=== PATIENT | female | born 1940 | race Caucasian/White ===

== ENCOUNTER 2025-01-04 15:13 | Inpatient (IN) | payer MEDICARE, BC ==
[~2025-01-04] VITALS: Ht 162.6 cm; Wt 49.4 kg
[2025-01-04] MEDS ORDERED: ONDANSETRON HCL/PF 4 MG/2 ML VIAL ONE ×2 (15:41→16:58)
[2025-01-04 15:43] LABS: BASOPHILS # (AUTO) 0.1 K/uL (0.0-0.2); BASOPHILS % (AUTO) 0.8 % (0.0-2.0); EOSINOPHILS % (AUTO) 0.1 % (0.0-6.0); HEMATOCRIT 40 % (33-45); HEMOGLOBIN 13.5 g/dL (11.5-14.8); LYMPHOCYTES # (AUTO) 1.3 K/uL (0.8-4.8); LYMPHOCYTES % (AUTO) 14.4 % (20.0-44.0); MEAN CORPUSCULAR HEMOGLOBIN 30 PG (26.0-33.0); MEAN CORPUSCULAR HGB CONC 33 g/dl (31.0-36.0); MEAN CORPUSCULAR VOLUME 89 fL (82-100); MONOCYTES # (AUTO) 0.3 K/uL (0.1-1.30); MONOCYTES % (AUTO) 3.2 % (2.0-12.0); NEUTROPHILS # (AUTO) 7.1 K/uL (1.8-8.9); NEUTROPHILS % (AUTO) 81.5 % (43.0-81.0); PLATELET COUNT (AUTO) 226 K/uL (150-450); RED BLOOD CELL COUNT(AUTO) 4.53 MIL/uL (4.0-5.2); RED CELL DISTRIBUTION WIDTH 14.1 % (11.5-15.0); WHITE BLOOD COUNT (AUTO) 8.8 K/uL (4.3-11.0)
[2025-01-04] MEDS: IV NS 0.9% 1,000 ML BAG IV ONE (15:43)
[2025-01-04] MEDS: ONDANSETRON HCL/PF 4 MG/2 ML VIAL IVP ONE (15:43)
[2025-01-04 15:57] LABS: CALCIUM, SERUM 9.6 mg/dL (8.5-10.1); CARBON DIOXIDE 23 mmol/L (21-32); CHLORIDE 98 mmol/L (98-107); CREATININE 1.2 mg/dL (0.6-1.3); GLUCOSE 142 mg/dL (74-106); POTASSIUM 3.8 mmol/L (3.5-5.1); SODIUM SERUM 135 mmol/L (136-145); UREA NITROGEN, BLOOD 13 mg/dL (7-18)
[2025-01-04 16:02] LABS: ALANINE AMINOTRANSFERASE 10 U/L (12-78); ALKALINE PHOSPHATASE 70 U/L (46-116); ASPARTATE AMINOTRANSFERASE 12 U/L (15-37); BILIRUBIN,DIRECT 0.1 mg/dL (0.0-0.2); BILIRUBIN,TOTAL 0.4 mg/dL (0.2-1.0); LIPASE 12 U/L (16-77); TOTAL PROTEIN, SERUM 8.1 g/dL (6.4-8.2)
[2025-01-04] MEDS ORDERED: MORPHINE SULFATE INJ 4 MG/ML DISP.SYRIN ONE (16:59)
[2025-01-04] MEDS ORDERED: MORPHINE SULFATE INJ 2 MG/ML DISP.SYRIN IV ONE (17:00)
[2025-01-04] MEDS ORDERED: FLAGYL/NS RTU 500 MG/100 ML PIGGYBACK IV ONE (17:00)
[2025-01-04] MEDS: CIPROFLOXACIN IV RTU 400 MG in PREMIX 1 EA IV STA (17:17)
[2025-01-04] MEDS: ONDANSETRON HCL/PF 4 MG/2 ML VIAL IV ONE (17:17)
[2025-01-04] MEDS ORDERED: HYDROMORPHONE 1 MG/1 ML DISP.SYRIN ONE (17:24)
[2025-01-04] MEDS: HYDROMORPHONE 1 MG/1 ML DISP.SYRIN IV ONE (17:28)
[2025-01-04 18:20] VITALS: BP 132/75; TEMP 98.1; O2SAT 100
[2025-01-04] MEDS ORDERED: MAG HYDROX/AL HYDROX/SIMETH 30 ML UDC PO PRN (18:30)
[2025-01-04] MEDS ORDERED: ACETAMINOPHEN 325 MG TABLET PO PRN (18:30)
[2025-01-04] MEDS: ONDANSETRON HCL/PF 4 MG/2 ML VIAL IVP PRN (19:42)
[2025-01-04] MEDS: IV NS 0.9% 1,000 ML IV PRN (19:42)
[2025-01-04 20:00] VITALS: BP_SYST 130; BP_SYST 132; BP_DIAS 75; BP_DIAS 78; TEMP 98.1; O2SAT 100
[2025-01-04] MEDS: KEY,NONCONTROL,TO KEEP IN PYXI 1 EA MC ONE (20:52)
[2025-01-04] MEDS: MEPERIDINE HCL/PF 50 MG/ML DISP.SYRIN IV ONE (20:58)
[2025-01-04] MEDS ORDERED: MEPERIDINE HCL/PF 100 MG/2 ML AMPUL IV ONE (21:00)
[2025-01-04] MEDS: LORAZEPAM 0.5 MG TABLET PO PRN (22:21)
[2025-01-04] MEDS: CLINDAMYCIN 300 MG in IV D5W 50 ML IV SCH (23:13)
[2025-01-05] MEDS ORDERED: METRONIDAZOLE 500MG/ NS 100ML 500 MG in PREMIX 1 EA IV SCH ×2
[2025-01-05] MEDS: KEY,NONCONTROL,TO KEEP IN PYXI 1 EA MC ONE (00:48)
[2025-01-05] MEDS: MEPERIDINE HCL/PF 50 MG/ML DISP.SYRIN IV PRN (00:51)
[2025-01-05 06:22] LABS: BASOPHILS % (AUTO) 0.4 % (0.0-2.0); HEMATOCRIT 37 % (33-45); HEMOGLOBIN 12.1 g/dL (11.5-14.8); LYMPHOCYTES # (AUTO) 1.3 K/uL (0.8-4.8); LYMPHOCYTES % (AUTO) 15.1 % (20.0-44.0); MEAN CORPUSCULAR HEMOGLOBIN 29 PG (26.0-33.0); MEAN CORPUSCULAR HGB CONC 33 g/dl (31.0-36.0); MEAN CORPUSCULAR VOLUME 88 fL (82-100); MONOCYTES # (AUTO) 0.5 K/uL (0.1-1.30); MONOCYTES % (AUTO) 5.5 % (2.0-12.0); NEUTROPHILS # (AUTO) 6.9 K/uL (1.8-8.9); PLATELET COUNT (AUTO) 218 K/uL (150-450); RED BLOOD CELL COUNT(AUTO) 4.14 MIL/uL (4.0-5.2); WHITE BLOOD COUNT (AUTO) 8.7 K/uL (4.3-11.0)
[2025-01-05 06:49] LABS: CALCIUM, SERUM 8.6 mg/dL (8.5-10.1); CREATININE 0.9 mg/dL (0.6-1.3); MAGNESIUM 1.5 mg/dL (1.8-2.4); PHOSPHORUS 2.6 mg/dL (2.5-4.9); POTASSIUM 3.7 mmol/L (3.5-5.1)
[2025-01-05 08:00] VITALS: BP 167/69; TEMP 97.5; O2SAT 96
[2025-01-05] MEDS ORDERED: KEY,NONCONTROL,TO KEEP IN PYXI 1 EA MC ONE ×4 (10:03→21:59)
[2025-01-05] MEDS: MAGNESIUM OXIDE 400 MG TABLET PO ONE (10:07)
[2025-01-05] MEDS: ONDANSETRON HCL/PF 4 MG/2 ML VIAL IV ONE (10:11)
[2025-01-05] MEDS: Magnesium 1GM/D5W 100ML PREMIX 100 ML IV SCH (10:46)
[2025-01-05 16:00] VITALS: BP 163/70; TEMP 97.5; O2SAT 95
[2025-01-05 18:34] VITALS: BP 155/70
[2025-01-05 20:00] VITALS: BP 116/63; TEMP 98.1; O2SAT 96
[2025-01-05] MEDS: CLINDAMYCIN 600 MG in IV NS 0.9% 46 ML IV SCH (20:35)
[2025-01-05 21:32] VITALS: BP 160/63; TEMP 98.1; O2SAT 96
[2025-01-06] MEDS: hydrALAZINE HCL IV 20 MG VIAL IV PRN (02:29)
[2025-01-06 04:34] VITALS: BP 150/76; TEMP 98.1; O2SAT 96
[2025-01-06] MEDS ORDERED: KEY,NONCONTROL,TO KEEP IN PYXI 1 EA MC ONE ×2 (05:52→10:24)
[2025-01-06 09:10] VITALS: BP 150/71; TEMP 97.7; O2SAT 96
[2025-01-06] MEDS ORDERED: MEPERIDINE HCL/PF 50 MG/ML DISP.SYRIN IV PRN (10:00)
[2025-01-06 16:00] VITALS: BP 158/67; TEMP 98.1; O2SAT 95
[2025-01-06 20:00] VITALS: BP 173/76; TEMP 97.5; O2SAT 96
[2025-01-07 06:56] LABS: APPEARANCE,URINE CLEAR (CLEAR); BILIRUBIN,URINE NEGATIVE (NEGATIVE); BLOOD, URINE NEGATIVE Ery/uL (NEGATIVE); COLOR,URINE YELLOW (YELLOW); KETONES,URINE 1+ mg/dL (NEGATIVE); LEUKOCYTE ESTERASE ,URINE NEGATIVE (NEGATIVE); NITRITE, URINE NEGATIVE (NEGATIVE); PROTEIN,URINE NEGATIVE (NEGATIVE); UGLUCOSE NEGATIVE (NEGATIVE); UROBILINOGEN,URINE 0.2 EU/dL (0.2)
[2025-01-07 07:12] LABS: ADD URINE CULTURE NO; BACTERIA,URINE Rare /HPF (None Seen); RBC,URINE 0-2 /HPF (0-2); WBC,URINE 0-2 /HPF (0-3); YEAST,URINE Rare /HPF (None Seen)
[2025-01-07 08:00] VITALS: BP 159/73; TEMP 97.9; O2SAT 98
[2025-01-07 12:39] VITALS: BP 163/77
== END 2025-01-07 13:15 | disposition hospice, home (50) | DRG 394 ==
LOC: ER 15:19 → MED 17:33
PROVIDERS: ADMIT Nurse Practitioner Acute Care; ATTEND Nurse Practitioner Acute Care
DX: K62.89 Other specified diseases of anus and rectum (principal); E87.1 Hypo-osmolality and hyponatremia; K63.89 Other specified diseases of intestine; T50.905A Adverse effect of unspecified drugs, medicaments and biological substances, initial encounter; Y92.099 Unspecified place in other non-institutional residence as the place of occurrence of the external cause; E86.0 Dehydration; F11.10 Opioid abuse, uncomplicated; G89.29 Other chronic pain; R10.84 Generalized abdominal pain; R11.2 Nausea with vomiting, unspecified; F32.A Depression, unspecified; F41.9 Anxiety disorder, unspecified; Z88.7 Allergy status to serum and vaccine; Z88.6 Allergy status to analgesic agent; Z88.1 Allergy status to other antibiotic agents; Z88.5 Allergy status to narcotic agent; Z88.0 Allergy status to penicillin; Z88.2 Allergy status to sulfonamides; Z88.8 Allergy status to other drugs, medicaments and biological substances; Z88.3 Allergy status to other anti-infective agents
CPT/HCPCS: 36415; 80048-TC; 80076-TC; 81001; 83690-TC; 83735-TC; 84100-TC; 85025-TC; 87081-TC; A4216; A4223; G0378; J0360; J0744; J1171; J2175; J2270; J2405; J3475; J3490; J7030; J7060